=== PATIENT | female | born 1945 | race Caucasian/White ===

== ENCOUNTER 2022-10-24 09:22 | Outpatient (CLI) | payer MEDICARE ==
[2022-10-24] MEDS ORDERED: Iopamidol-370 76% 500 ML MDV (1 ML CHARGE) ONE (09:28)
== END 2022-10-24 09:23 | disposition home or self-care (01) ==
LOC: BICCT 09:22
PROVIDERS: ATTEND Internal Medicine Cardiovascular Disease
DX: R94.39 Abnormal result of other cardiovascular function study (principal); I65.21 Occlusion and stenosis of right carotid artery
CPT/HCPCS: 70498

== ENCOUNTER 2022-11-27 10:30 | Inpatient (IN) | payer MEDICARE ==
[2022-11-28] MEDS ORDERED: Heparin 5,000 UNITS/ML VIAL ONE (06:54)
[2022-11-28] MEDS ORDERED: Protamine Sulfate 50 MG/5 ML VIAL ONE (06:54)
[2022-11-28] MEDS ORDERED: Dexamethasone 4 mg/ml Vial ONE (06:54)
[2022-11-28] MEDS ORDERED: Bupivacaine PF 0.5% 30 ML VIAL ONE (06:54)
[2022-11-28] MEDS ORDERED: EPINEPHrine 1 MG/ML AMP ONE (06:54)
[2022-11-28] MEDS ORDERED: Fentanyl 250 MCG/5 ML VIAL ONE (07:00)
[2022-11-28] MEDS ORDERED: SUGAMMADEX SODIUM 200 MG/2 ML VIAL ONE (07:01)
[2022-11-28] MEDS ORDERED: Vasopressin 20 UNITS/ML VIAL ONE (07:01)
[2022-11-28] MEDS ORDERED: Norepinephrine 4 MG/4 ML VIAL ONE (07:01)
[2022-11-28] MEDS ORDERED: Rocuronium Bromide 50 MG/5 ML VIAL ONE (07:01)
[2022-11-28] MEDS ORDERED: CEFAZOLIN 2 GM VIAL ONE (07:51)
[2022-11-28] MEDS ORDERED: Sodium Chloride 0.9% 0 ML ONE (07:51)
[2022-11-28] MEDS ORDERED: Ipratropium/Albuterol 3 ML NEB ONE ×2 (08:07→09:52)
[2022-11-28] MEDS ORDERED: Phenylephrine 10 MG/ML VIAL ONE (08:14)
[2022-11-28] MEDS ORDERED: Albuterol HFA (OR) 200 PUFF INH ONE (08:14)
[2022-11-28] MEDS ORDERED: Ondansetron PF 4 MG/2 ML Vial ONE (08:20)
[2022-11-28] MEDS ORDERED: Rocuronium Bromide 10 MG/ML (10ML VIAL) ONE (08:20)
[2022-11-28] MEDS ORDERED: Lidocaine 1% PF 5 ML VIAL ONE (08:20)
[2022-11-28] MEDS ORDERED: PROPOFOL 200 MG/20 ML VIAL ONE (08:20)
[2022-11-28] MEDS ORDERED: Dexamethasone 20 MG/5 ML VIAL ONE (08:20)
[2022-11-28] MEDS ORDERED: niCARdipine 25 MG/10 ML SDV ONE (09:24)
[2022-11-28] MEDS ORDERED: Sodium Chloride For Inhalation 0.9% 3 ML NEB ONE (09:52)
[2022-11-28] MEDS ORDERED: Albuterol 200 PUFF (6.7GM INHALER) INH PRN (10:00)
[2022-11-28] MEDS ORDERED: Polyethylene Glycol 3350 17 GM Packet PO PRN (10:00)
[2022-11-28] MEDS ORDERED: Ondansetron PF 4 MG/2 ML Vial IVP PRN (10:00)
[2022-11-28] MEDS ORDERED: Phenylephrine 40 MG in Sodium Chloride 0.9% 250 ML 250 ML IVPB PRN (10:00)
[2022-11-28] MEDS ORDERED: Nitroglycerin 50 MG/250 ML BOT 250 ML IVPB PRN (10:00)
[2022-11-28] MEDS ORDERED: Ipratropium Bromide 2.5 ml Neb NEB PRN (10:00)
[2022-11-28] MEDS ORDERED: hydrALAZINE 20 MG/ML VIAL SLOW IVP PRN (10:00)
[2022-11-28] MEDS ORDERED: Ipratropium/Albuterol 3 ML NEB NEB PRN (10:00)
[2022-11-28] MEDS ORDERED: guaiFENesin ER 600 MG TAB PO PRN (10:00)
[2022-11-28] MEDS ORDERED: Phenylephrine 40 MG/NS 250 ML 40 MG in Premix 1 BAG IVPB SCH (10:45)
[2022-11-28 12:28] VITALS: BMI 14.1
[2022-11-28] MEDS: Ipratropium/Albuterol 3 ML NEB NEB SCH ×3 (12:50→23:22)
[2022-11-28] MEDS: Sodium Chloride 0.9% 1,000 ML IV SCH ×2 (13:42→21:10)
[2022-11-28] MEDS: Acetaminophen 325 MG TAB PO PRN (13:48)
[2022-11-28] MEDS: CEFAZOLIN 2 GM in Sodium Chloride 0.9% 100 ML IVPB SCH (16:14)
[2022-11-28] MEDS ORDERED: Calcium Carbonate 500 MG ChewTAB PO PRN (18:07)
[2022-11-28] MEDS: Mometasone 200 MCG/Formoterol 5 MCG 120 PUFF INHALER INH SCH (18:31)
[2022-11-28] MEDS ORDERED: tiZANidine HCl 4 MG TAB PO SCH (21:00)
[2022-11-28] MEDS ORDERED: Atorvastatin Calcium 40 MG TAB PO SCH (21:00)
[2022-11-28] MEDS: Morphine ER 15 MG TAB PO SCH (21:13)
[2022-11-28] MEDS: Fluticasone Propionate Nasal Spray 16 gm Bottle NASAL SCH (21:20)
[2022-11-29] MEDS: CEFAZOLIN 2 GM in Sodium Chloride 0.9% 100 ML IVPB SCH ×2 (00:48→08:04)
[2022-11-29 04:34] VITALS: TEMP 98.2
[2022-11-29] MEDS: Acetaminophen 325 MG TAB PO PRN (05:48)
[2022-11-29] MEDS: Sodium Chloride 0.9% 1,000 ML IV SCH (06:11)
[2022-11-29] MEDS: Mometasone 200 MCG/Formoterol 5 MCG 120 PUFF INHALER INH SCH (06:55)
[2022-11-29] MEDS: Ipratropium/Albuterol 3 ML NEB NEB SCH (06:55)
[2022-11-29] MEDS: Fluticasone Propionate Nasal Spray 16 gm Bottle NASAL SCH (08:05)
[2022-11-29] MEDS: Morphine ER 15 MG TAB PO SCH (08:13)
[2022-11-29] MEDS ORDERED: Cholecalciferol 1,000 UNITS (25 MCG) TAB PO SCH (09:00)
[2022-11-29] MEDS ORDERED: Montelukast Sodium 10 mg Tablet PO SCH (09:00)
[2022-11-29] MEDS ORDERED: Clopidogrel Bisulfate 75 MG TAB PO SCH (09:00)
[2022-11-29] MEDS ORDERED: Cyanocobalamin (Vitamin B-12) 1,000 MCG TAB PO SCH (09:00)
[2022-11-29] MEDS ORDERED: Amlodipine 5 MG TAB PO SCH (09:00)
[2022-11-29] MEDS ORDERED: Aspirin Chewable 81 MG TAB PO SCH (09:00)
== END 2022-11-29 09:07 | disposition home or self-care (01) | DRG 34 ==
LOC: SURG A 11-28 06:14 → CCU 11-28 11:43
PROVIDERS: ADMIT Thoracic Surgery (Cardiothoracic Vascular Surgery); ATTEND Thoracic Surgery (Cardiothoracic Vascular Surgery)
PROC: 037K3DZ Dilation of Right Internal Carotid Artery with Intraluminal Device, Percutaneous Approach (ICD-10-PCS; principal; 2022-11-28)
PROC: 3E033XZ Introduction of Vasopressor into Peripheral Vein, Percutaneous Approach (ICD-10-PCS; 2022-11-28)
DX: I65.23 Occlusion and stenosis of bilateral carotid arteries (principal); E43 Unspecified severe protein-calorie malnutrition; Z68.1 Body mass index [BMI] 19.9 or less, adult; I10 Essential (primary) hypertension; J43.8 Other emphysema; I73.9 Peripheral vascular disease, unspecified; E55.9 Vitamin D deficiency, unspecified; M41.55 Other secondary scoliosis, thoracolumbar region; R62.7 Adult failure to thrive; F17.218 Nicotine dependence, cigarettes, with other nicotine-induced disorders; G89.29 Other chronic pain; E78.00 Pure hypercholesterolemia, unspecified; Z98.890 Other specified postprocedural states; Z80.8 Family history of malignant neoplasm of other organs or systems; Z88.2 Allergy status to sulfonamides; Z88.8 Allergy status to other drugs, medicaments and biological substances; Z88.5 Allergy status to narcotic agent
CPT/HCPCS: 36416; 94640; C1725; C1758; C1769; C1876; C1884; J0171; J1100; J1642; J1644; J2370; J2405; J2704; J2720; J3010; J3490; J7620; S0020

== ENCOUNTER 2022-12-25 08:59 | Outpatient (CLI) | payer MEDICARE | END 2022-12-25 09:00 | disposition home or self-care (01) | LOC: RAD 08:59 | PROVIDERS: ATTEND Internal Medicine Critical Care Medicine | DX: R06.00 Dyspnea, unspecified (principal); J44.9 Chronic obstructive pulmonary disease, unspecified | CPT/HCPCS: 71046 ==

== ENCOUNTER 2023-02-18 10:16 | Inpatient (IN) | payer MEDICARE ==
[2023-02-18 11:11] LABS: #Basophils 0.1 thou/uL (0.0-0.2); #Eosinphils 0.1 thou/uL (0.0-0.7); #Monocytes 0.3 thou/uL (0.11-0.59); #Neutrophils 3.2 thou/uL (1.40-6.50); %Basophils 1.2 % (0.0-1.0); %Lymphocytes 27.2 % (21.0-51.0); %Monocytes 6.4 % (0.0-10.0); Hematocrit 32.3 % (36.0-47.0); Hemoglobin 10.7 g/dL (12.0-16.0); Mean Corpuscular HGB CONC 33.1 g/dL (32.0-36.0); Mean Corpuscular Hemoglobin 31.7 pg (27.0-31.0); Mean Corpuscular Volume 95.6 fl (78.0-98.0); Mean Platelet Volume 8.9 fL (7.4-10.4); Platelet Count 239 10x3/uL (130-400); RBC Distribution Width 11.9 % (11.5-14.5); Red Blood Cell (RBC) Count 3.38 mill/uL (4.20-5.40)
[2023-02-18] MEDS ORDERED: Pantoprazole 40 MG VIAL ONE (11:31)
[2023-02-18 11:34] LABS: ALT (SGPT) 9 U/L (8-55); AST (SGOT) 18 U/L (5-34); Albumin 3.8 g/dL (3.4-4.8); Alkaline Phosphatase 68 U/L (40-110); Anion Gap 13 mmol/L (10-20); BUN (Urea Nitrogen) 20 mg/dL (9.8-20.1); Bilirubin, Total 0.8 mg/dL (0.2-1.2); Calc. Creatinine Clearance 0 mL/min (70-130); Carbon Dioxide 24 mmol/L (23-31); Chloride 99 mmol/L (98-107); Estimated GFR 79; Globulin 2.6 g/dL (2.4-3.5); Glucose 89 mg/dL (83-110); Potassium 4.1 mmol/L (3.5-5.1); Protein, Total 6.4 g/dL (5.8-8.1); Sodium 132 mmol/L (136-145)
[2023-02-18 12:09] LABS: Troponin I Less than 0.010 ng/mL (< 0.028)
[2023-02-18] MEDS ORDERED: Acetaminophen 325 MG TAB PO PRN (12:20)
[2023-02-18] MEDS ORDERED: Senokot S 8.6-50 MG TAB PO PRN (12:20)
[2023-02-18] MEDS ORDERED: Bisacodyl 10 MG SUPP PR PRN (12:20)
[2023-02-18] MEDS ORDERED: Bisacodyl 5 MG TAB PO PRN (12:20)
[2023-02-18] MEDS ORDERED: GoLYTELY 4,000 ml Bottle PO SCH (12:45)
[2023-02-18 13:14] LABS: Iron 74 ug/dL (50-170); Iron Binding Capacity, Total 261 mcg/dL (265-497)
[2023-02-18 13:32] VITALS: BMI 13.0
[2023-02-18] MEDS ORDERED: FLU VACC QS2023(65UP)/MF59C/PF 60 MCG/0.5 ML SYRINGE IM ONE (13:45)
[2023-02-18] MEDS ORDERED: Morphine ER 15 MG TAB PO SCH (17:00)
[2023-02-18] MEDS: Morphine ER 15 MG TAB PO SCH (17:14)
[2023-02-18] MEDS: Mometasone 100 MCG/Formoterol 5 MCG 120 PUFF INHALER INH SCH (19:35)
[2023-02-18] MEDS: Sodium Chloride 0.9% 1,000 ML IV SCH (20:07)
[2023-02-18] MEDS: Atorvastatin Calcium 40 MG TAB PO SCH (20:07)
[2023-02-18 20:20] LABS: Hemoglobin 9.8 g/dL (12.0-16.0)
[2023-02-18] MEDS ORDERED: Atorvastatin Calcium 40 MG TAB PO SCH (21:00)
[2023-02-19] MEDS: Mometasone 100 MCG/Formoterol 5 MCG 120 PUFF INHALER INH SCH (05:40)
[2023-02-19] MEDS: Morphine ER 15 MG TAB PO SCH ×2 (05:51→17:55)
[2023-02-19 07:05] LABS: Hematocrit 27.5 % (36.0-47.0); Hemoglobin 9.2 g/dL (12.0-16.0)
[2023-02-19 07:06] LABS: #Basophils 0.1 thou/uL (0.0-0.2); #Monocytes 0.4 thou/uL (0.11-0.59); #Neutrophils 4.3 thou/uL (1.40-6.50); %Basophils 0.8 % (0.0-1.0); %Eosinophils 0.5 % (0.0-10.0); %Lymphocytes 21.6 % (21.0-51.0); %Monocytes 6.1 % (0.0-10.0); %Neutrophils 70.7 % (42.0-75.0); Hematocrit 27.2 % (36.0-47.0); Hemoglobin 9.2 g/dL (12.0-16.0); Mean Corpuscular HGB CONC 33.8 g/dL (32.0-36.0); Mean Corpuscular Hemoglobin 32.5 pg (27.0-31.0); Mean Corpuscular Volume 96.1 fl (78.0-98.0); Mean Platelet Volume 9.9 fL (7.4-10.4); Platelet Count 237 10x3/uL (130-400); RBC Distribution Width 11.9 % (11.5-14.5); Red Blood Cell (RBC) Count 2.83 mill/uL (4.20-5.40)
[2023-02-19 07:33] LABS: Anion Gap 14 mmol/L (10-20); BUN (Urea Nitrogen) 19 mg/dL (9.8-20.1); Calc. Creatinine Clearance 38 mL/min (70-130); Calcium 8.6 mg/dL (7.8-10.44); Carbon Dioxide 25 mmol/L (23-31); Chloride 105 mmol/L (98-107); Estimated GFR 90; Glucose 81 mg/dL (83-110); Potassium 3.2 mmol/L (3.5-5.1); Sodium 141 mmol/L (136-145)
[2023-02-19] MEDS: Amlodipine 5 MG TAB PO SCH (08:36)
[2023-02-19] MEDS: Polyethylene Glycol 3350 17 GM Packet PO SCH (08:37)
[2023-02-19] MEDS: Sodium Chloride 0.9% 1,000 ML IV SCH (08:57)
[2023-02-19] MEDS ORDERED: Ketamine In 0.9 % NaCl 50 MG/5 ML SYRINGE ONE (09:42)
[2023-02-19] MEDS ORDERED: Midazolam HCl 2 mg/2 ml Vial ONE (09:47)
[2023-02-19] MEDS ORDERED: PROPOFOL 20 ML ONE (09:47)
[2023-02-19] MEDS ORDERED: Lidocaine 1% PF 5 ML VIAL ONE ×2 (09:52→10:19)
[2023-02-19] MEDS ORDERED: Ondansetron HCl/PF 4 MG/2 ML Vial IVP PRN (10:27)
[2023-02-19] MEDS ORDERED: Promethazine HCl 25 MG/ML VIAL IM PRN (10:27)
[2023-02-19 11:51] LABS: Hematocrit 26.3 % (36.0-47.0); Hemoglobin 8.8 g/dL (12.0-16.0)
[2023-02-19] MEDS ORDERED: hydrALAZINE 20 MG/ML VIAL SLOW IVP PRN (15:11)
[2023-02-19] MEDS: tiZANidine HCl 4 MG TAB PO SCH (17:55)
[2023-02-19] MEDS: Mometasone 200 MCG/Formoterol 5 MCG 120 PUFF INHALER INH SCH ×2 (18:03→18:47)
[2023-02-19] MEDS: Ipratropium/Albuterol 3 ML NEB NEB SCH ×2 (18:04→22:25)
[2023-02-19] MEDS ORDERED: Ipratropium/Albuterol 3 ML NEB NEB SCH (19:00)
[2023-02-19] MEDS: Atorvastatin Calcium 40 MG TAB PO SCH (20:50)
[2023-02-20] MEDS: Ipratropium/Albuterol 3 ML NEB NEB SCH ×6 (01:49→22:22)
[2023-02-20 04:21] LABS: #Eosinphils 0.1 thou/uL (0.0-0.7); #Monocytes 0.4 thou/uL (0.11-0.59); #Neutrophils 3.8 thou/uL (1.40-6.50); %Basophils 0.7 % (0.0-1.0); %Eosinophils 1.8 % (0.0-10.0); %Lymphocytes 21.5 % (21.0-51.0); %Monocytes 6.3 % (0.0-10.0); %Neutrophils 69.3 % (42.0-75.0); Hematocrit 24.5 % (36.0-47.0); Hemoglobin 8.1 g/dL (12.0-16.0); Mean Corpuscular HGB CONC 33.1 g/dL (32.0-36.0); Mean Corpuscular Hemoglobin 31.5 pg (27.0-31.0); Mean Corpuscular Volume 95.3 fl (78.0-98.0); Mean Platelet Volume 9.8 fL (7.4-10.4); Platelet Count 202 10x3/uL (130-400); Red Blood Cell (RBC) Count 2.57 mill/uL (4.20-5.40); White Blood Cell (WBC) Count 5.5 10x3/uL (4.8-10.8)
[2023-02-20] MEDS: Morphine ER 15 MG TAB PO SCH ×2 (05:25→16:07)
[2023-02-20] MEDS: tiZANidine HCl 4 MG TAB PO SCH ×2 (05:26→16:07)
[2023-02-20 05:53] LABS: Anion Gap 11 mmol/L (10-20); BUN (Urea Nitrogen) 10 mg/dL (9.8-20.1); Calc. Creatinine Clearance 39 mL/min (70-130); Calcium 8.5 mg/dL (7.8-10.44); Carbon Dioxide 27 mmol/L (23-31); Chloride 102 mmol/L (98-107); Estimated GFR 91; Glucose 85 mg/dL (83-110); Potassium 3.1 mmol/L (3.5-5.1); Sodium 137 mmol/L (136-145)
[2023-02-20] MEDS: Mometasone 200 MCG/Formoterol 5 MCG 120 PUFF INHALER INH SCH ×2 (07:28→18:12)
[2023-02-20] MEDS ORDERED: Potassium Chloride 20 MEQ TAB PO SCH ×2 (08:00→16:15)
[2023-02-20 09:03] LABS: Magnesium 1.6 mg/dL (1.6-2.6)
[2023-02-20] MEDS: Polyethylene Glycol 3350 17 GM Packet PO SCH (09:09)
[2023-02-20] MEDS: Amlodipine 5 MG TAB PO SCH (09:09)
[2023-02-20] MEDS: Montelukast Sodium 10 mg Tablet PO SCH (09:10)
[2023-02-20] MEDS ORDERED: Magnesium 2 GM/50 ML(in water) 2 GM in Premix 1 BAG IVPB SCH ×3 (12:15→21:00)
[2023-02-20] MEDS: Potassium Chloride 20 MEQ TAB PO SCH ×2 (17:15→17:16)
[2023-02-20 18:09] LABS: Potassium 3.8 mmol/L (3.5-5.1)
[2023-02-20] MEDS: guaiFENesin ER 600 MG TAB PO SCH (21:23)
[2023-02-20] MEDS: Atorvastatin Calcium 40 MG TAB PO SCH (21:23)
[2023-02-21] MEDS: Ipratropium/Albuterol 3 ML NEB NEB SCH ×4 (02:34→14:27)
[2023-02-21 05:05] LABS: #Eosinphils 0.1 thou/uL (0.0-0.7); #Monocytes 0.4 thou/uL (0.11-0.59); #Neutrophils 3.2 thou/uL (1.40-6.50); %Basophils 0.4 % (0.0-1.0); %Lymphocytes 26.4 % (21.0-51.0); %Monocytes 7.1 % (0.0-10.0); %Neutrophils 63.7 % (42.0-75.0); Hematocrit 31.8 % (36.0-47.0); Hemoglobin 10.9 g/dL (12.0-16.0); Mean Corpuscular HGB CONC 34.3 g/dL (32.0-36.0); Mean Corpuscular Hemoglobin 31.8 pg (27.0-31.0); Mean Corpuscular Volume 92.7 fl (78.0-98.0); Mean Platelet Volume 9.8 fL (7.4-10.4); Platelet Count 212 10x3/uL (130-400); RBC Distribution Width 13.1 % (11.5-14.5); Red Blood Cell (RBC) Count 3.43 mill/uL (4.20-5.40)
[2023-02-21] MEDS: Morphine ER 15 MG TAB PO SCH (05:43)
[2023-02-21] MEDS: tiZANidine HCl 4 MG TAB PO SCH (05:44)
[2023-02-21 07:50] LABS: Anion Gap 10 mmol/L (10-20); BUN (Urea Nitrogen) 9 mg/dL (9.8-20.1); Calc. Creatinine Clearance 34 mL/min (70-130); Calcium 8.9 mg/dL (7.8-10.44); Carbon Dioxide 27 mmol/L (23-31); Chloride 101 mmol/L (98-107); Estimated GFR 86; Glucose 83 mg/dL (83-110); Potassium 4.4 mmol/L (3.5-5.1); Sodium 134 mmol/L (136-145)
[2023-02-21] MEDS: Mometasone 200 MCG/Formoterol 5 MCG 120 PUFF INHALER INH SCH (07:52)
[2023-02-21] MEDS: Montelukast Sodium 10 mg Tablet PO SCH (08:09)
[2023-02-21] MEDS: guaiFENesin ER 600 MG TAB PO SCH (08:09)
[2023-02-21] MEDS: Polyethylene Glycol 3350 17 GM Packet PO SCH (08:09)
[2023-02-21] MEDS: Amlodipine 5 MG TAB PO SCH (08:09)
[2023-02-21 12:46] VITALS: BP 138/63; TEMP 98.4
== END 2023-02-21 14:57 | disposition home or self-care (01) | DRG 377 ==
LOC: ERS 10:16 → 2SW 11:57 → OBSVTOIN 02-20 12:03
PROVIDERS: ADMIT Hospitalist; ATTEND Internal Medicine
PROC: 0DJ08ZZ Inspection of Upper Intestinal Tract, Via Natural or Artificial Opening Endoscopic (ICD-10-PCS; principal; 2023-02-19)
PROC: 0DJD8ZZ Inspection of Lower Intestinal Tract, Via Natural or Artificial Opening Endoscopic (ICD-10-PCS; 2023-02-19)
PROC: 30233N1 Transfusion of Nonautologous Red Blood Cells into Peripheral Vein, Percutaneous Approach (ICD-10-PCS; 2023-02-20)
DX: K57.31 Diverticulosis of large intestine without perforation or abscess with bleeding (principal); E43 Unspecified severe protein-calorie malnutrition; D62 Acute posthemorrhagic anemia; J96.11 Chronic respiratory failure with hypoxia; Z68.1 Body mass index [BMI] 19.9 or less, adult; I35.0 Nonrheumatic aortic (valve) stenosis; J44.9 Chronic obstructive pulmonary disease, unspecified; I10 Essential (primary) hypertension; I73.9 Peripheral vascular disease, unspecified; F17.210 Nicotine dependence, cigarettes, uncomplicated; K29.70 Gastritis, unspecified, without bleeding; G89.29 Other chronic pain; M81.0 Age-related osteoporosis without current pathological fracture; E87.6 Hypokalemia; Z98.890 Other specified postprocedural states; Z88.1 Allergy status to other antibiotic agents; Z88.2 Allergy status to sulfonamides; Z88.8 Allergy status to other drugs, medicaments and biological substances; Z79.51 Long term (current) use of inhaled steroids; Z79.82 Long term (current) use of aspirin; Z79.899 Other long term (current) drug therapy
CPT/HCPCS: 36415; 36430; 71045; 80048; 80053; 82274; 83540; 83550; 83690; 83735; 83880; 84484; 85025; 86850; 86900; 86901; 93005; 94640; 94664; 96374; C9113; G0378; J0360; J2250; J2704; J3475; J3490; J7050; J7611; J7620; P9016

== ENCOUNTER 2023-07-29 08:10 | Inpatient (IN) | payer MEDICARE ==
[2023-07-29 09:18] LABS: Actual Bicarbonate (HCO3v) 37.1 mEq/L (22-28); Base Excess 9.2 mEq/L (-2.0 to +3.0); Calcium, Ionized (venous) 1.09 mmol/L (1.16-1.32); Chloride (VBG) 86 mmol/L (98-106); Hematocrit-VBG 43 % (36.0-47.0); Hemoglobin (Hb) 14.7 g/dL (11.7-16.1); Sodium 129 mmol/L (133-146); pH (venous) 7.375 (7.32-7.43)
[2023-07-29] MEDS ORDERED: Azithromycin 500 MG VIAL ONE (09:30)
[2023-07-29] MEDS ORDERED: cefTRIAXone (ROCEPHIN) 1 GM VIAL ONE (09:31)
[2023-07-29] MEDS ORDERED: methylPREDNISolone Sod Succ/PF 125 MG/2 ML VIAL ONE (09:31)
[2023-07-29] MEDS ORDERED: Sodium Chloride 0.9% 100 ML ONE (09:31)
[2023-07-29 09:34] LABS: #Basophils Less than 0.03 10x3/uL (0.0-0.2); #Eosinphils Less than 0.03 10x3/uL (0.0-0.7); %Basophils 0.1 % (0.0-1.0); %Eosinophils 0.3 % (0.0-10.0); %Lymphocytes 6.6 % (21.0-51.0); %Neutrophils 83.7 % (42.0-75.0); Hematocrit 40.1 % (36.0-47.0); Hemoglobin 13.8 g/dL (12.0-16.0); Mean Corpuscular HGB CONC 34.4 g/dL (32.0-36.0); Mean Corpuscular Hemoglobin 30.9 pg (27.0-31.0); Mean Corpuscular Volume 89.9 fL (78.0-98.0); Mean Platelet Volume 9.1 fL (7.4-10.4); Platelet Count 189 10x3/uL (130-400); RBC Distribution Width 12.3 % (11.5-14.5); Red Blood Cell (RBC) Count 4.46 mill/uL (4.20-5.40)
[2023-07-29 09:40] LABS: ALT (SGPT) 23 U/L (8-55); AST (SGOT) 24 U/L (5-34); Albumin 3.5 g/dL (3.4-4.8); Alkaline Phosphatase 76 U/L (40-110); Anion Gap 15 mmol/L (10-20); BUN (Urea Nitrogen) 19 mg/dL (9.8-20.1); Bilirubin, Total 0.5 mg/dL (0.2-1.2); Calc. Creatinine Clearance 0 mL/min (70-130); Calcium 9.4 mg/dL (7.8-10.44); Carbon Dioxide 35 mmol/L (23-31); Chloride 85 mmol/L (98-107); Estimated GFR 79; Globulin 3.6 g/dL (2.4-3.5); Glucose 104 mg/dL (83-110); Magnesium 1.9 mg/dL (1.6-2.6); Potassium 3.6 mmol/L (3.5-5.1); Protein, Total 7.1 g/dL (5.8-8.1); Sodium 131 mmol/L (136-145)
[2023-07-29 09:41] LABS: Troponin I 0.038 ng/mL (< 0.028)
[2023-07-29 11:00] VITALS: BMI 13.8
[2023-07-29 12:18] LABS: Troponin I 0.039 ng/mL (< 0.028)
[2023-07-29 15:30] LABS: Troponin I 0.032 ng/mL (< 0.028)
[2023-07-29] MEDS: Nystatin 500,000 UNITS/5 ML UDCUP SSW SCH (21:54)
[2023-07-29] MEDS ORDERED: cloNIDine 0.1 MG TAB PO SCH (22:15)
[2023-07-29] MEDS ORDERED: Guaifenesin DM 100-10/5 ML UDCUP PO PRN (22:20)
[2023-07-29] MEDS ORDERED: Ondansetron PF 4 MG/2 ML Vial IVP PRN (22:20)
[2023-07-29] MEDS ORDERED: Ondansetron ODT 4 MG TAB PO PRN (22:20)
[2023-07-29] MEDS ORDERED: Acetaminophen 500 MG TAB PO PRN (22:20)
[2023-07-29] MEDS ORDERED: Budesonide 0.5 MG/2 ML NEB NEB PRN (22:20)
[2023-07-29] MEDS ORDERED: hydrALAZINE 20 MG/ML VIAL SLOW IVP PRN (22:20)
[2023-07-29] MEDS ORDERED: Polyethylene Glycol 3350 17 GM Packet PO PRN (22:20)
[2023-07-29] MEDS ORDERED: Benzonatate 100 MG CAP PO PRN (22:20)
[2023-07-29] MEDS: Ipratropium/Albuterol 3 ML NEB NEB SCH (22:37)
[2023-07-29] MEDS: Morphine ER 15 MG TAB PO SCH (22:44)
[2023-07-29] MEDS: Atorvastatin Calcium 40 MG TAB PO SCH (22:44)
[2023-07-29] MEDS: methylPREDNISolone Sod Succ 40 MG VIAL IVP SCH (22:44)
[2023-07-29] MEDS: guaiFENesin ER 600 MG TAB PO PRN (22:45)
[2023-07-29] MEDS: Famotidine 20 MG TAB PO SCH (22:45)
[2023-07-29] MEDS: Amlodipine 5 MG TAB PO SCH (22:45)
[2023-07-29] MEDS: Nicotine 14 MG PATCH TD SCH (22:46)
[2023-07-29] MEDS: Doxycycline 100 MG CAP PO SCH (22:48)
[2023-07-29] MEDS: Mometasone 200 MCG/Formoterol 5 MCG 120 PUFF INHALER INH SCH (22:51)
[2023-07-30 04:57] LABS: #Basophils Less than 0.03 10x3/uL (0.0-0.2); #Eosinphils Less than 0.03 10x3/uL (0.0-0.7); %Basophils 0.3 % (0.0-1.0); %Lymphocytes 7.6 % (21.0-51.0); %Neutrophils 87.2 % (42.0-75.0); Hematocrit 38.2 % (36.0-47.0); Mean Corpuscular Hemoglobin 31.3 pg (27.0-31.0); Mean Corpuscular Volume 91.8 fL (78.0-98.0); Platelet Count 198 10x3/uL (130-400); RBC Distribution Width 11.9 % (11.5-14.5); Red Blood Cell (RBC) Count 4.16 mill/uL (4.20-5.40)
[2023-07-30 05:20] LABS: Anion Gap 14 mmol/L (10-20); BUN (Urea Nitrogen) 20 mg/dL (9.8-20.1); Calc. Creatinine Clearance 34 mL/min (70-130); Calcium 9.2 mg/dL (7.8-10.44); Carbon Dioxide 36 mmol/L (23-31); Chloride 86 mmol/L (98-107); Estimated GFR 83; Glucose 124 mg/dL (83-110); Potassium 3.9 mmol/L (3.5-5.1); Sodium 132 mmol/L (136-145)
[2023-07-30] MEDS: Morphine ER 15 MG TAB PO SCH (05:22)
[2023-07-30 07:56] VITALS: BMI 13.8
[2023-07-30] MEDS ORDERED: Non-Formulary Item 1 EACH (Fluticasone/Umeclidin/Vilanter [Trelegy Ellipta 200-62.5-25] 1 IH SCH (09:00)
[2023-07-30] MEDS: Furosemide 20 MG TAB PO SCH (09:29)
[2023-07-30] MEDS: Montelukast Sodium 10 mg Tablet PO SCH (09:29)
[2023-07-30] MEDS: Cyanocobalamin (Vitamin B-12) 1,000 MCG TAB PO SCH (09:29)
[2023-07-30] MEDS: Amlodipine 5 MG TAB PO SCH (09:29)
[2023-07-30] MEDS: Cholecalciferol 1,000 UNITS (25 MCG) TAB PO SCH (09:29)
[2023-07-30] MEDS: Enoxaparin 30 MG (0.3 mL) SYRINGE SC SCH (20:37)
[2023-07-31] MEDS: predniSONE 20 MG TAB PO SCH (08:48)
[2023-08-02 11:50] VITALS: BP 169/79; TEMP 97.9
== END 2023-08-02 14:00 | disposition home or self-care (01) | DRG 189 ==
LOC: ERS 08:10 → ERHOLD 10:44 → 2NO 16:12 → MSONC 07-30 17:44
PROVIDERS: ADMIT Family Medicine; ATTEND Internal Medicine
DX: J96.01 Acute respiratory failure with hypoxia (principal); E43 Unspecified severe protein-calorie malnutrition; J44.1 Chronic obstructive pulmonary disease with (acute) exacerbation; E87.1 Hypo-osmolality and hyponatremia; Z68.1 Body mass index [BMI] 19.9 or less, adult; I10 Essential (primary) hypertension; I25.10 Atherosclerotic heart disease of native coronary artery without angina pectoris; F17.210 Nicotine dependence, cigarettes, uncomplicated; I65.21 Occlusion and stenosis of right carotid artery; Z88.2 Allergy status to sulfonamides; Z88.1 Allergy status to other antibiotic agents; Z88.8 Allergy status to other drugs, medicaments and biological substances; Z79.899 Other long term (current) drug therapy; Z98.890 Other specified postprocedural states; Z90.49 Acquired absence of other specified parts of digestive tract
CPT/HCPCS: 36415; 71045; 80048; 80053; 82805; 83735; 83880; 84484; 85025; 93005; 93306; 94640; 96365; 96375; J0456; J0696; J1650; J2920; J2930; J3490; J7512; J7620

== ENCOUNTER 2023-08-06 03:48 | Inpatient (IN) | payer MEDICARE ==
[2023-08-06] MEDS ORDERED: Albuterol 2.5 MG (0.5 mL) NEB ONE (04:08)
[2023-08-06] MEDS ORDERED: Ipratropium/Albuterol 3 ML NEB ONE (04:08)
[2023-08-06] MEDS ORDERED: Albuterol 2.5 MG (3 mL) NEB ONE (04:08)
[2023-08-06] MEDS ORDERED: methylPREDNISolone Sod Succ/PF 125 MG/2 ML VIAL ONE (04:09)
[2023-08-06 04:39] LABS: #Basophils 0.06 10x3/uL (0.0-0.2); #Eosinphils Less than 0.03 10x3/uL (0.0-0.7); %Basophils 0.3 % (0.0-1.0); %Lymphocytes 1.7 % (21.0-51.0); %Monocytes 4.5 % (0.0-10.0); Hematocrit 39.8 % (36.0-47.0); Hemoglobin 13.7 g/dL (12.0-16.0); Mean Corpuscular HGB CONC 34.4 g/dL (32.0-36.0); Mean Corpuscular Hemoglobin 31.2 pg (27.0-31.0); Mean Corpuscular Volume 90.7 fL (78.0-98.0); Mean Platelet Volume 8.8 fL (7.4-10.4); Platelet Count 271 10x3/uL (130-400); RBC Distribution Width 11.4 % (11.5-14.5); Red Blood Cell (RBC) Count 4.39 mill/uL (4.20-5.40)
[2023-08-06 04:52] LABS: ALT (SGPT) 15 U/L (8-55); AST (SGOT) 20 U/L (5-34); Alkaline Phosphatase 89 U/L (40-110); Anion Gap 15 mmol/L (10-20); BUN (Urea Nitrogen) 31 mg/dL (9.8-20.1); Calc. Creatinine Clearance 0 mL/min (70-130); Calcium 10.1 mg/dL (7.8-10.44); Carbon Dioxide 40 mmol/L (23-31); Chloride 78 mmol/L (98-107); Estimated GFR 79; Globulin 3.6 g/dL (2.4-3.5); Glucose 115 mg/dL (83-110); INR-International Normal Ratio 0.9; Protein, Total 6.6 g/dL (5.8-8.1); Prothrombin Time 12.6 sec (12.0-14.7); Sodium 130 mmol/L (136-145)
[2023-08-06] MEDS ORDERED: Azithromycin 500 MG VIAL ONE (04:52)
[2023-08-06 04:53] LABS: PTT 26.1 sec (22.9-36.1)
[2023-08-06 05:08] LABS: Influenza A by NAA Not Detected (NotDetected); Influenza B by NAA Not Detected (NotDetected); SARS-CoV-2 NAA Rapid Test Not Detected (NotDetected)
[2023-08-06 05:14] LABS: Troponin I 0.014 ng/mL (< 0.028)
[2023-08-06 05:33] LABS: Actual Bicarbonate (HCO3v) 38.2 mEq/L (22-28); Base Excess 12.5 mEq/L (-2.0 to +3.0); Calcium, Ionized (venous) 1.07 mmol/L (1.16-1.32); Chloride (VBG) 80 mmol/L (98-106); Hematocrit-VBG 39 % (36.0-47.0); Hemoglobin (Hb) 13.4 g/dL (11.7-16.1); Potassium (VBG) 3.28 mmol/L (3.70-5.30); Sodium 128 mmol/L (133-146); pH (venous) 7.474 (7.32-7.43)
[2023-08-06] MEDS ORDERED: Morphine 4 MG/ML VIAL ONE (06:02)
[2023-08-06] MEDS ORDERED: Acetaminophen 325 MG TAB PO PRN (07:11)
[2023-08-06] MEDS ORDERED: Calcium Carbonate 500 MG ChewTAB PO PRN (07:11)
[2023-08-06] MEDS ORDERED: Ondansetron PF 4 MG/2 ML Vial IVP PRN (07:11)
[2023-08-06] MEDS ORDERED: Senokot S 8.6-50 MG TAB PO PRN (07:11)
[2023-08-06] MEDS ORDERED: Benzonatate 100 MG CAP PO PRN (07:19)
[2023-08-06] MEDS ORDERED: Ipratropium/Albuterol 3 ML NEB NEB PRN (07:19)
[2023-08-06 09:18] VITALS: BMI 12.4
[2023-08-06] MEDS: cefTRIAXone\\ROCEPHIN 1 GM in Sodium Chloride 0.9% 100 ML IVPB SCH (09:41)
[2023-08-06] MEDS: Enoxaparin 40 MG (0.4 mL) SYRINGE SC SCH (09:41)
[2023-08-06] MEDS: Montelukast Sodium 10 mg Tablet PO SCH (09:41)
[2023-08-06] MEDS: Amlodipine 5 MG TAB PO SCH (09:41)
[2023-08-06] MEDS: Potassium Chloride 20 MEQ in Premix 1 BAG IVPB SCH (09:41)
[2023-08-06] MEDS: Ipratropium/Albuterol 3 ML NEB NEB SCH (10:38)
[2023-08-06] MEDS: Morphine ER 15 MG TAB PO SCH (12:05)
[2023-08-06] MEDS: methylPREDNISolone Sod Succ 40 MG VIAL IVP SCH (12:05)
[2023-08-06] MEDS: tiZANidine HCl 4 MG TAB PO SCH (15:13)
[2023-08-06] MEDS: Nicotine 14 MG PATCH TD SCH ×2 (18:24→20:56)
[2023-08-06] MEDS: Mometasone 100 MCG HFA INHALER (RT USE) INH SCH (19:08)
[2023-08-06] MEDS: Atorvastatin Calcium 40 MG TAB PO SCH (20:55)
[2023-08-06] MEDS: Nystatin 500,000 UNITS/5 ML UDCUP PO SCH (20:56)
[2023-08-07 00:19] LABS: Anion Gap 14 mmol/L (10-20); BUN (Urea Nitrogen) 31 mg/dL (9.8-20.1); Calc. Creatinine Clearance 32 mL/min (70-130); Calcium 9.5 mg/dL (7.8-10.44); Carbon Dioxide 38 mmol/L (23-31); Chloride 87 mmol/L (98-107); Estimated GFR 83; Glucose 137 mg/dL (83-110); Magnesium 2.2 mg/dL (1.6-2.6); Potassium 4.5 mmol/L (3.5-5.1); Sodium 134 mmol/L (136-145)
[2023-08-07 04:57] LABS: #Basophils Less than 0.03 10x3/uL (0.0-0.2); #Eosinphils Less than 0.03 10x3/uL (0.0-0.7); %Basophils 0.1 % (0.0-1.0); %Lymphocytes 1.6 % (21.0-51.0); %Monocytes 2.7 % (0.0-10.0); %Neutrophils 95.3 % (42.0-75.0); Hemoglobin 12.5 g/dL (12.0-16.0); Mean Corpuscular HGB CONC 32.9 g/dL (32.0-36.0); Mean Corpuscular Hemoglobin 31.5 pg (27.0-31.0); Mean Corpuscular Volume 95.7 fL (78.0-98.0); Mean Platelet Volume 9.1 fL (7.4-10.4); Platelet Count 289 10x3/uL (130-400); RBC Distribution Width 11.8 % (11.5-14.5); Red Blood Cell (RBC) Count 3.97 mill/uL (4.20-5.40)
[2023-08-07 05:42] LABS: ALT (SGPT) 16 U/L (8-55); AST (SGOT) 16 U/L (5-34); Albumin 2.7 g/dL (3.4-4.8); Alkaline Phosphatase 74 U/L (40-110); Anion Gap 17 mmol/L (10-20); BUN (Urea Nitrogen) 35 mg/dL (9.8-20.1); Bilirubin, Total 0.5 mg/dL (0.2-1.2); Calc. Creatinine Clearance 30 mL/min (70-130); Calcium 9.9 mg/dL (7.8-10.44); Carbon Dioxide 35 mmol/L (23-31); Chloride 88 mmol/L (98-107); Estimated GFR 79; Globulin 3.7 g/dL (2.4-3.5); Glucose 117 mg/dL (83-110); Magnesium 2.3 mg/dL (1.6-2.6); Potassium 4.7 mmol/L (3.5-5.1); Protein, Total 6.4 g/dL (5.8-8.1); Sodium 135 mmol/L (136-145)
[2023-08-07] MEDS: Enoxaparin 30 MG (0.3 mL) SYRINGE SC SCH (08:28)
[2023-08-07] MEDS: Azithromycin 500 MG in Sodium Chloride 0.9% 250 ML 250 ML IVPB SCH (08:29)
[2023-08-07] MEDS: Lorazepam 0.5 MG TAB PO PRN (16:48)
[2023-08-07 17:52] VITALS: BMI 12.4
[2023-08-08] MEDS: methylPREDNISolone Sod Succ 40 MG VIAL IVP SCH (08:51)
[2023-08-08] MEDS: Phenazopyridine HCl 100 MG TAB PO SCH (08:53)
[2023-08-09 05:49] LABS: #Basophils Less than 0.03 10x3/uL (0.0-0.2); #Eosinphils Less than 0.03 10x3/uL (0.0-0.7); %Basophils 0.2 % (0.0-1.0); %Lymphocytes 1.8 % (21.0-51.0); %Monocytes 2.9 % (0.0-10.0); %Neutrophils 94.7 % (42.0-75.0); Hematocrit 33.4 % (36.0-47.0); Hemoglobin 11.4 g/dL (12.0-16.0); Mean Corpuscular HGB CONC 34.1 g/dL (32.0-36.0); Mean Corpuscular Hemoglobin 31.8 pg (27.0-31.0); Mean Platelet Volume 9.3 fL (7.4-10.4); Platelet Count 328 10x3/uL (130-400); RBC Distribution Width 11.9 % (11.5-14.5); Red Blood Cell (RBC) Count 3.59 mill/uL (4.20-5.40)
[2023-08-09 06:04] LABS: Anion Gap 12 mmol/L (10-20); BUN (Urea Nitrogen) 46 mg/dL (9.8-20.1); Calc. Creatinine Clearance 37 mL/min (70-130); Calcium 9.7 mg/dL (7.8-10.44); Carbon Dioxide 40 mmol/L (23-31); Chloride 89 mmol/L (98-107); Estimated GFR 89; Glucose 133 mg/dL (83-110); Potassium 4.1 mmol/L (3.5-5.1); Sodium 137 mmol/L (136-145)
[2023-08-09] MEDS: methylPREDNISolone Sod Succ 40 MG VIAL IVP SCH (08:24)
[2023-08-10 08:38] VITALS: TEMP 98.8
[2023-08-10] MEDS: hydrOXYzine 25 MG TAB PO PRN (13:31)
== END 2023-08-10 13:50 | disposition hospice, home (50) | DRG 189 ==
LOC: ERS 03:48 → IMCU/EMU 06:48
PROVIDERS: ADMIT Internal Medicine; ATTEND Hospitalist
PROC: 5A09457 Assistance with Respiratory Ventilation, 24-96 Consecutive Hours, Continuous Positive Airway Pressure (ICD-10-PCS; principal; 2023-08-06)
PROC: 5A0935A Assistance with Respiratory Ventilation, Less than 24 Consecutive Hours, High Flow/Velocity Cannula (ICD-10-PCS; 2023-08-07)
DX: J96.21 Acute and chronic respiratory failure with hypoxia (principal); E43 Unspecified severe protein-calorie malnutrition; J44.1 Chronic obstructive pulmonary disease with (acute) exacerbation; R64 Cachexia; Z68.1 Body mass index [BMI] 19.9 or less, adult; N39.0 Urinary tract infection, site not specified; E87.3 Alkalosis; E87.1 Hypo-osmolality and hyponatremia; J96.22 Acute and chronic respiratory failure with hypercapnia; E78.5 Hyperlipidemia, unspecified; I10 Essential (primary) hypertension; I25.10 Atherosclerotic heart disease of native coronary artery without angina pectoris; R53.1 Weakness; G89.29 Other chronic pain; F17.210 Nicotine dependence, cigarettes, uncomplicated; E87.8 Other disorders of electrolyte and fluid balance, not elsewhere classified; Z88.1 Allergy status to other antibiotic agents; Z79.899 Other long term (current) drug therapy; Z90.89 Acquired absence of other organs; Z90.722 Acquired absence of ovaries, bilateral; Z99.81 Dependence on supplemental oxygen; M41.9 Scoliosis, unspecified; Z90.49 Acquired absence of other specified parts of digestive tract; Z82.49 Family history of ischemic heart disease and other diseases of the circulatory system; R62.7 Adult failure to thrive; Z66 Do not resuscitate; E87.6 Hypokalemia
CPT/HCPCS: 36415; 71045; 80048; 80053; 82805; 83605; 83735; 83880; 84484; 85025; 85610; 85730; 87040; 87070; 87205; 89220; 93005; 94640; 94644; 94660; 94760; 96361; 96365; 96375; J0456; J0696; J1650; J2270; J2920; J2930; J3480; J3490; J7050; J7611; J7620